=== PATIENT | male | born 1985 | race Caucasian/White ===

== ENCOUNTER → 2017-06-29 | Outpatient (CLI) | payer OTHER | LOC: MRI 10:56 | DX: M25.562 Pain in left knee (principal) ==

== ENCOUNTER 2017-07-25 05:28 | Day surgery (SDC) | payer OTHER ==
[~2017-07-25] VITALS: Ht 188 cm; Wt 98.9 kg
--- NOTE | ~2017-07-25 | O ---
[address] [address] OPERATIVE REPORT Name: CLYDE GARZA Room #: DEP [facility]..#: [id number] Admission: 07/25/17 Attend Phys: Tonny Pryor MD Discharge: 07/25/17 Date of : 87 Report #: [id number] THIS REPORT FOR: //name// CC: [facility] physician/PCP Tonny Pryor DATE OF SERVICE: 07/25/2017 SERVICE: Orthopedics. FACILITY: [facility]. SURGEON: Tonny Pryor MD TILE SHADER: Dr. Coleen Baltazar, nurse practitioner. INDICATION FOR ASSISTANCE: Assistance with cartilage, with obtaining biopsy and biopsy management. PREOPERATIVE DIAGNOSES: 1. Left knee pain. 2. Left knee chondromalacia. POSTOPERATIVE DIAGNOSES: 1. Left knee pain. 2. Left knee chondromalacia. 3. Lateral patellar maltracking. PROCEDURE: 1. Left knee diagnostic arthroscopy with patellar chondroplasty. 2. Left knee arthroscopic articular cartilage biopsy. ANESTHESIA: General. COMPLICATIONS: None. DRAINS: None. SPECIMENS: None. FINDINGS: 1. A 12 x 12 mm grade 3 chondromalacia of this proximal lateral aspect of the patella with a lateral riding patella. 2. Plans for part two staged autologous chondrocyte grafting will include a medializing tibial tubercle. 3. Remaining intra-articular structures are normal. [address] [address] OPERATIVE REPORT Name: CLYDE GARZA [id number] Admission: 07/25/17 Attend Phys: Tonny Pryor MD Discharge: 07/25/17 Date of : 87 Report #: [id number] HISTORY: The patient is a 31-year-old gentleman with a history of persistent and progressive left knee pain and crepitus. He is having significant impact on his daily activities including simple things such as work and playing with his children. He wished to undergo more definitive treatment. An MRI showed articular cartilage pathology. We discussed conservative treatment as well as more invasive including reconstructive options and he elected to pursue this avenue after he had failed nonsurgical measures. Risks, benefits, alternatives, and indication of surgery were discussed with him in detail. Risks include but not limited to pain, bleeding, infection, injury to nerves or blood vessels, persistent pain despite surgical intervention, progression of any preexisting chondral injury, stiffness, need for further surgery as well as complications related to anesthesia. Plans were made for left knee diagnostic arthroscopy with cartilage biopsy for later staged matrix based autologous chondrocyte implantation. PROCEDURE IN DETAIL: After left lower extremity was correctly identified as the operative extremity, the patient was taken to the operating room where general anesthesia was induced without complications. He was padded appropriately. Prophylactic antibiotics were administered at appropriate time. Tourniquet was applied to left thigh. Left leg was prepped and draped in standard sterile fashion. Time-out procedure was performed. Esmarch was utilized. Tourniquet inflated to 250 mmHg. Standard anterolateral viewing portal, followed by anterior medial working portal were established in typical fashion. Diagnostic arthroscopy was performed. There were no loose bodies. The ACL and PCL were normal. The medial and lateral compartments were normal as were the menisci. The trochlear was normal. The patella was normal for the majority with the exception of an area of grade 3 chondromalacia that was contacting the lateral femoral condyle due to lateral patellar maltracking and this was located in the proximal aspect of the lateral patellar specifically, we measured this at approximately 12 x 12 mm and then we used the shaver to complete a chondroplasty of the frayed articular cartilage in this area. At this point, decision was made to proceed with cartilage biopsy for later staged TRACY. The knee was flexed. Sharp curved osteotome was then placed and an osteochondral biopsy in the nonweightbearing portion of the lateral femoral condyle at the edge of the notch was then taken. Care was taken to ensure that no involvement of the anterior cruciate ligaments occurred. After this was completed, the biopsy was carefully placed in a saline sterile receptacle and was evaluated. It appeared to be a sufficient quantity and so this was passed in a sterile fashion into the culture medium and then prepared for transport to the laboratory. The arthroscopic effusion was drained. The instruments were removed from the knee. The portal sites were closed. Sterile dressing was [address] [address] OPERATIVE REPORT Name: CLYDE GARZA Camille Room #: DEP [facility]#: [id number] Admission: 07/25/17 Attend Phys: Tonny Pryor MD Discharge: 07/25/17 Date of : 87 Report #: [id number] applied. The patient was awakened from anesthesia and taken to recovery room in stable condition. There were no complications and all counts were recorded as correct. <ELECTRONICALLY SIGNED> By: Tonny Pryor MD 07/26/17 [id number] Tonny Pryor MD /nt
[2017-07-25 09:30] VITALS: BP 116/69
== END 2017-07-25 13:50 | disposition home or self-care (01) ==
LOC: TBA 05:28 → OR 05:28 → TBA 05:29 → OR 07:21
DX: M94.262 Chondromalacia, left knee (principal); M22.2X2 Patellofemoral disorders, left knee; J45.909 Unspecified asthma, uncomplicated; Z98.890 Other specified postprocedural states
CPT/HCPCS: 50010; 50101; 50405; 51038; 51986; 54170; 56524; 56527; 62110; 62900; 64037; 70005